=== PATIENT | female | born 1975 | race Caucasian/White ===

== ENCOUNTER 2016-09-29 22:27 | Emergency (ER) | payer SELFPAY ==
[2016-09-29] MEDS ORDERED: ALBUTEROL SULFATE 2.5 MG/3 ML VIAL.NEB IH ONE (23:00)
--- NOTE | 2016-09-29 23:01 | ERNOTE ---
Time Seen by Provider: 09/29/16 22:54 Stated Complaint: COUGH,FEVER,SINUS,CHEST CONGESTION. Presenting Symptoms:: cough Source: patient Exam Limitations: no limitations Immunizations: IMMUNIZATION HX Immunizations Up to Date Yes History of Influenza Vaccine No Hx Pneumococcal Vaccination No Allergies/Adverse Reactions: Allergies No Known Allergies Allergy (Verified 09/29/16 22:37) Home Medications: HOME MEDICATIONS NK [No Home Medication] 09/29/16 [Last Taken Unknown] - History of Present Ilness Narrative: Patient has URI symptoms for about three days, couhg, congestions, fever, chills. Her got sick two days before her and is starting to feel better. She did not get the flue shot Date (Duration): 09/26/16 Review of Systems - Review of Systems Constitutional: Present: fever, chills, fatigue, malaise ENT: Present: nose congestion, nasal drainage. Absent: ear pain, sore throat Respiratory: Present: shortness of breath, cough Cardiology: Absent: chest pain Gastrointestinal/Abdominal: Present: nausea. Absent: vomiting, diarrhea, abdominal pain Genitourinary: Present: frequency, dysuria Musculoskeletal: Present: muscle pain Skin: Absent: rash Neurological: Absent: headache - Patient's Past Medical History Patient History - Medical: Migraines Patient History - Cardiac/Respiratory: Asthma Patient History - Cancer: No Hx of Cancer Patient History - Surgical Procedures: Appendectomy, Tubal Ligation Patient History - Other: None - Social History Living Situations: home Abuse History: No History of abuse Psych History: No pertinent hx Smoking Status: Current every day smoker Patient requests Smoking Cessation Consult: No Initiate information on Smoking Cessation: No Alcohol Use: rarely Drug Use: none - Immunizations Immunizations Up to Date: Yes Hx Pneumococcal Vaccination: No History of Influenza Vaccine: No Physical Exam - Physical Exam General Appearance: Present: wd/wn, alert, no apparent distress Eye Exam: Normal inspection: bilateral, PERRL: bilateral Ears, Nose, Throat: Present: normal except -, nasal congestion. Absent: pharyngeal erythema Neck: Absent: lymphadenopathy (R), lymphadenopathy (L) Respiratory: Present: no respiratory distress, decreased breath sounds, wheezing Cardiovascular/Chest: Present: regular rate, rhythm, no murmur Gastrointestinal/Abdominal: Present: nontender Neurological Exam: Present: alert, oriented, normal mood/affect Skin Exam: Present: normal color, warm/dry ED Progress - Results and Orders Patient's Lab Results:: I have reviewed the patient's lab results. - Vital Signs Patient's Vital Signs:: I have reviewed the patient's vital signs. Vital Signs: Vital Signs 09/29/16 22:35 Temperature 36.9 C Pulse Rate 90 Respiratory 20 Rate Blood Pressure 113/86 O2 Sat by Pulse 97 Oximetry - Progress/Reassessment Chief Complaint: Upper Respiratory Symptoms Progress Note-Subjective: 09/29/16 23:42 discussed results and plan patient feeling better after albuterol neb treatment Departure - Departure Clinical Impression: Influenza A Disposition: Home self-care Condition: Good Instructions: Influenza, Adult, [id number], Form - Excuse from Work, School, or Physical Activity Additional Instructions: take over the counter medications as needed use your albuterol with a spacer Referrals: Yovana Ha MD [Staff Physician] -
[2016-09-29] MEDS ORDERED: ALBUTEROL SULFATE 2.5 MG/0.5 ML VIAL.NEB IH ONE (23:03)
[2016-09-29 23:12] LABS: Urine Bilirubin Negative (NEGATIVE); Urine Blood 25 /ul (NEGATIVE); Urine Ketone Negative (NEGATIVE); Urine Nitrite Negative (NEGATIVE); Urine Protein 15 mg/dL (NEGATIVE); Urine Specific Gravity >=1.030 SP.GR. (1.005-1.010); Urine Urobilinogen Normal (NORMAL)
[2016-09-29 23:22] LABS: Urine Appearance Clear; Urine Color Yellow; Urine RBC None Seen /hpf (0-5); Urine WBC None Seen /hpf (0-5)
[2016-09-29 23:23] LABS: Urine Bacteria 2+
[2016-09-30 00:54] VITALS: BP 121/84
== END 2016-09-29 23:48 | disposition home or self-care (01) ==
LOC: ER 22:27
DX: J10.1 Influenza due to other identified influenza virus with other respiratory manifestations (principal)

== ENCOUNTER 2016-11-02 21:13 | Emergency (ER) | payer SELFPAY ==
[2016-11-02 21:44] VITALS: BP 152/83
[2016-11-02] MEDS ORDERED: HYDROcodone/ACETAMINOPHEN 1 EACH TABLET PO ONE (23:59)
[2016-11-03] MEDS ORDERED: PENICILLIN V POTASSIUM 250 MG TABLET PO ONE (00:07)
--- NOTE | 2016-11-03 00:07 | ERNOTE ---
ENT HPI Date of Service: 11/02/16 Time Seen by Provider: 11/02/16 23:06 Source: patient Exam Limitations: no limitations - Immun/Allergies/Home Medications Immunizations: IMMUNIZATION HX Immunizations Up to Date Yes History of Influenza Vaccine No Hx Pneumococcal Vaccination No Allergies/Adverse Reactions: Allergies Allergy/AdvReac Type Severity Reaction Status Date / Time No Known Allergies Allergy Verified 11/02/16 21:44 Home Medications: HOME MEDICATIONS Naproxen 500 mg PO BID PRN #30 tablet. 11/02/16 [Last Taken Unknown] Penicillin V Potassium [Pen-Vee K] 500 mg PO Q8H #30 tab 11/02/16 [Last Taken Unknown] - History of Present Illness Narrative: 41 year old that developed gum pain at the left mandible. The pain has worsened and is increased with contact. No complaints of fevers or chills. Denies any neck pain or difficulty swallowing. Severity: Present: moderate ENT Location: Present: mouth Prearrival Treatment: Present: over the counter meds Modifying Factors - Improves: Reports: nothing Modifying Factors - Worsens: Reports: other - contact Associated Symptoms - ENT: Reports: denies symptoms Review of Systems - Review of Systems Constitutional: Present: no symptoms reported EYE: Present: no symptoms reported ENT: Present: See HPI Respiratory: Present: no symptoms reported Cardiology: Present: no symptoms reported Gastrointestinal/Abdominal: Present: no symptoms reported Genitourinary: Present: no symptoms reported Musculoskeletal: Present: no symptoms reported Skin: Present: no symptoms reported Neurological: Present: no symptoms reported Endocrine: Present: no symptoms reported Hematologic/Lymphatic: Present: no symptoms reported - Patient's Past Medical History Patient History - Medical: Migraines Patient History - Cardiac/Respiratory: Asthma Patient History - Cancer: No Hx of Cancer Patient History - Surgical Procedures: Appendectomy, Tubal Ligation Patient History - Other: None - Family History Mother Family History - Cancer: Throat - Social History Living Situations: spouse Abuse History: No History of abuse Psych History: No pertinent hx Smoking Status: Current every day smoker Alcohol Use: rarely Drug Use: none - Immunizations Immunizations Up to Date: Yes Hx Pneumococcal Vaccination: No History of Influenza Vaccine: No Physical Exam - Physical Exam General Appearance: Present: no apparent distress Eye Exam: Normal inspection: bilateral, PERRL: bilateral Ears, Nose, Throat: Present: other - The area of tenderness at the gum line at tooth 20-22. No pain with compression of teeth. 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 Vital Signs: Vital Signs 11/02/16 21:41 Temperature 36.7 C Pulse Rate 80 Respiratory 16 Rate Blood Pressure 152/83 O2 Sat by Pulse 100 Oximetry - Progress/Reassessment Chief Complaint: Dental Problem Progress:: Unchanged Progress Note-Subjective: 11/03/16 00:06 given Penicillin V 500 mg and [place] 10/325 po. Departure Clinical Impression: Dental implant pain - Departure Disposition: Home self-care Condition: Fair Instructions: Dental Abscess, [id number] Print Language: Bel[place]ian Additional Instructions: See a dentist on Friday. Prescriptions: Naproxen 500 mg PO BID PRN #30 tablet.dr BEEBE Reason: Pain Penicillin V Potassium [Pen-Vee K] 500 mg PO Q8H #30 tab
[2016-11-03] MEDS ORDERED: PENICILLIN V POTASSIUM 250 MG TABLET ONE (00:08)
[2016-11-03] MEDS ORDERED: HYDROcodone/ACETAMINOPHEN 1 EACH TABLET ONE (00:08)
== END 2016-11-03 00:17 | disposition home or self-care (01) ==
LOC: ER 21:13
DX: K08.89 Other specified disorders of teeth and supporting structures (principal); F17.210 Nicotine dependence, cigarettes, uncomplicated

== ENCOUNTER 2017-03-21 11:37 | Emergency (ER) | payer OTHER ==
[2017-03-21 11:45] VITALS: BP 136/96
[2017-03-21] MEDS ORDERED: NEOMY SULF/POLYMYX B SULF/HC 100 DROP BTL LEFT EAR ONE (11:55)
[2017-03-21] MEDS ORDERED: NEOMY SULF/POLYMYX B SULF/HC 100 DROP BTL ONE (11:55)
[2017-03-21] MEDS ORDERED: HYDROcodone/ACETAMINOPHEN 1 EACH TABLET PO ONE (12:02)
[2017-03-21] MEDS ORDERED: HYDROcodone/ACETAMINOPHEN 1 EACH TABLET ONE (12:03)
--- NOTE | 2017-03-21 12:06 | ERNOTE ---
ENT HPI Date of Service: 03/21/17 Presenting Symptoms: other - Ear pain Time Seen by Provider: 03/21/17 11:50 Source: patient, RN notes reviewed, old records Exam Limitations: no limitations - Immun/Allergies/Home Medications Immunizations: IMMUNIZATION HX Immunizations Up to Date Yes History of Influenza Vaccine No Hx Pneumococcal Vaccination No Allergies/Adverse Reactions: Allergies Allergy/AdvReac Type Severity Reaction Status Date / Time No Known Allergies Allergy Verified 03/21/17 11:44 Home Medications: HOME MEDICATIONS Penicillin V Potassium [Pen-Vee K] 500 mg PO Q8H #30 tab 11/02/16 [Last Taken Unknown] HYDROcodone/ACETAMINOPHEN [[place] 5-325] 1 - 2 tab PO Q6H PRN #16 tab 03/21/17 [ Last Taken Unknown] - History of Present Illness Narrative: 41 y/o female presents to the ED for severe left ear pain. She was seen in the clinic 2 days ago and prescribed amoxicillin for otitis media. She reports initially having fullness in the ear, but last night began have pain. She has been taking OTC pain relievers without improvement. Severity: Present: severe ENT Location: Present: ear (L) Prearrival Treatment: Present: over the counter meds, prescription meds Prior Treament: Reports: recently seen, currently on antibiotics Review of Systems - Review of Systems Constitutional: Absent: recent illness, fever, chills EYE: Present: no symptoms reported ENT: Present: ear pain, ear discharge. Absent: nose congestion, nasal drainage , sore throat Respiratory: Absent: shortness of breath, cough Cardiology: Absent: chest pain, palpitations Gastrointestinal/Abdominal: Present: nausea. Absent: vomiting, abdominal pain Genitourinary: Present: no symptoms reported Musculoskeletal: Present: neck pain. Absent: back pain, joint pain Skin: Present: lumps. Absent: rash, lesions Neurological: Present: headache, dizziness/light-headedness Endocrine: Present: no symptoms reported Hematologic/Lymphatic: Present: no symptoms reported Psych: Present: no symptoms reported - Patient's Past Medical History Patient History - Medical: Migraines Patient History - Cardiac/Respiratory: Asthma Patient History - Cancer: No Hx of Cancer Patient History - Surgical Procedures: Appendectomy, , D & C, Tubal Ligation Patient History - Other: None LMP (Calendar): 09/27/17 - Family History Mother Family History - Cancer: Throat - Social History Living Situations: home Abuse History: No History of abuse Psych History: No pertinent hx Smoking Status: Current every day smoker Alcohol Use: rarely Drug Use: none - Immunizations Immunizations Up to Date: Yes Hx Pneumococcal Vaccination: No History of Influenza Vaccine: No Physical Exam - Physical Exam General Appearance: Present: wd/wn, alert, mild distress, crying Eye Exam: Normal inspection: bilateral Ears, Nose, Throat: Present: normal except - - Severe inflammation and tenderness to left external ear canal Neck: Present: supple, lymphadenopathy (L). Absent: lymphadenopathy (R) Respiratory: Present: no respiratory distress, normal breath sounds, no accessory muscle use, lungs clear Cardiovascular/Chest: Present: regular rate, rhythm, no murmur, normal peripheral pulses Neurological Exam: Present: alert, oriented, normal mood/affect, no motor/ sensory deficits Skin Exam: Present: normal color, warm/dry ED Progress - Vital Signs Patient's Vital Signs:: I have reviewed the patient's vital signs. Vital Signs: Vital Signs 03/21/17 11:40 Temperature 36.5 C Pulse Rate 90 Respiratory 12 Rate Blood Pressure 136/96 O2 Sat by Pulse 97 Oximetry - Progress/Reassessment Chief Complaint: Earache Progress:: Improved Plan - Plan Plan: Wick placed in left ear and saturated with cortisporin otic drops. Patient tolerated well. Departure Clinical Impression: Otitis externa of left ear Qualifiers: Otitis externa type: other infective Chronicity: acute Qualified Code(s): H60.392 - Other infective otitis externa, left ear - Departure Disposition: Home self-care Condition: Stable Instructions: Otitis Externa, [id number] Additional Instructions: Use ear drops as directed Can remove ear wick in 2 days Stop oral antibiotic Prescriptions: HYDROcodone/ACETAMINOPHEN [[place] 5-325] 1 - 2 tab PO Q6H PRN #16 tab PRN Reason: Pain
== END 2017-03-21 12:11 | disposition home or self-care (01) ==
LOC: ER 11:37
DX: H60.392 Other infective otitis externa, left ear (principal); F17.200 Nicotine dependence, unspecified, uncomplicated

== ENCOUNTER 2017-05-14 01:39 | Emergency (ER) | payer OTHER ==
[2017-05-14] MEDS ORDERED: METHYLPREDNISOLONE SOD SUCC/PF 125 MG/2 ML VIAL IV ONE (01:51)
[2017-05-14] MEDS ORDERED: ALBUTEROL SULFATE/IPRATROPIUM 3 ML NEBU IH ONE ×2 (01:51→02:06)
[2017-05-14] MEDS ORDERED: ALBUTEROL SULFATE 2.5 MG/0.5 ML VIAL.NEB IH ONE ×2 (01:51→02:03)
--- NOTE | 2017-05-14 01:54 | ERNOTE ---
Date of Service: 05/14/17 Time Seen by Provider: 05/14/17 01:52 Stated Complaint: ASTHMA ATTACK Source: patient Immunizations: IMMUNIZATION HX Immunizations Up to Date Yes History of Influenza Vaccine No Hx Pneumococcal Vaccination No Allergies/Adverse Reactions: Allergies No Known Allergies Allergy (Verified 03/21/17 11:44) Home Medications: HOME MEDICATIONS Albuterol Sulfate [Ventolin HFA] 1 puff IH Q6H PRN 05/14/17 [Last Taken Unknown] Prednisone 50 mg PO DAILY #5 tablet 05/14/17 [Last Taken Unknown] - History of Present Ilness Narrative: This is a 41-year-old female with a past history of asthma who comes to the emergency department with chest tightness difficulty breathing which started 20 minutes prior to arrival. Patient says that she feels like there is a small lump in her throat. Patient has never been intubated for her asthma in the past and states that she has 2-3 outbreaks per year. Earlier today she was having a little bit of a cough. 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 Her symptoms became significant fairly quickly. She tried using her inhaler which normally works but did not work this time she denies any diaphoresis dizziness or chest pain Review of Systems - Review of Systems All Other Systems: All systems neg except as marked - Patient's Past Medical History Patient History - Medical: Migraines Patient History - Cardiac/Respiratory: Asthma Patient History - Cancer: No Hx of Cancer Patient History - Surgical Procedures: Appendectomy, , D & C, Tubal Ligation Patient History - Other: None - Family History Mother Family History - Cancer: Throat - Social History Living Situations: spouse Abuse History: No History of abuse Psych History: No pertinent hx Smoking Status: Current every day smoker Have you smoked in the past 12 months: Yes Do you dip or chew tobacco: No Alcohol Use: occasionally Drug Use: none - Immunizations Immunizations Up to Date: Yes Hx Pneumococcal Vaccination: No History of Influenza Vaccine: No Physical Exam - Physical Exam General Appearance: Present: other - patient is in mild respiratory distress distress. She is tachypneic. She speaks in 5 word sentences. Head Exam: Present: normal inspection, no evidence of injury Eye Exam: Normal inspection: bilateral Ears, Nose, Throat: Present: normal ENT inspection, normal pharynx Neck: Present: normal inspection, nontender Respiratory: Present: other - decreased air entry throughout. Expiratory wheezes with prolonged expiratory phase especially at the bases Cardiovascular/Chest: Present: regular rate, rhythm, no murmur, normal peripheral pulses Gastrointestinal/Abdominal: Present: normal bowel sounds, nontender, nondistended, soft Back Exam: Present: normal inspection, normal range of motion, no CVA tenderness , no vertebral tenderness Extremity Exam: Present: normal inspection, non-tender, normal range of motion, no edema Neurological Exam: Present: alert, oriented, normal mood/affect Skin Exam: Present: normal color, warm/dry Lymphatic Exam: Present: no adenopathy ED Progress - Vital Signs Patient's Vital Signs:: I have reviewed the patient's vital signs. Vital Signs: Vital Signs 05/14/17 01:41 Temperature 36.7 C Pulse Rate 80 Respiratory 24 H Rate Blood Pressure 134/70 O2 Sat by Pulse 98 Oximetry - Progress/Reassessment Chief Complaint: Asthma Progress:: Improved Progress Note-Subjective: 05/14/17 03:01 Patient is much much improved after nearly an hour long breathing treatment. She has no further wheezing. Only abnormality is very slightly diminished breath sounds bilaterally. She is very comfortable speaking in full sentences Departure Clinical Impression: Asthma attack - Departure Disposition: Home self-care Condition: Good Instructions: Bronchospasm, Adult Additional Instructions: As we discussed I want you to take the prescribed prednisone for 5 days. This will take approximately 12 hours to start working. Until it starts working you may need years her inhaler much more frequently. You have had a Severe asthma attack. I want you call your family doctor, tell them you were seen in the ER, and set up a follow-up appointment. He may need to be placed on alternative medicines to help prevent further attacks. Next Return to the ER if you develop difficulty breathing or chest tightness. He should come back for any new worrisome symptoms Prescriptions: Prednisone 50 mg PO DAILY #5 tablet
[2017-05-14] MEDS ORDERED: METHYLPREDNISOLONE SOD SUCC/PF 125 MG/2 ML VIAL ONE (02:01)
[2017-05-14 03:22] VITALS: BP 123/82
== END 2017-05-14 03:20 | disposition home or self-care (01) ==
LOC: ER 01:39
DX: J45.909 Unspecified asthma, uncomplicated (principal); F17.200 Nicotine dependence, unspecified, uncomplicated